=== PATIENT | male | born 1990 ===

== ENCOUNTER 2022-12-16 09:47 | Emergency (ER) | payer SELFPAY ==
--- NOTE | ~2022-12-16 | XR_ITS ---
EXAMINATION: XR knee RT 3V DATE: 12/16/2022 10:29 INDICATION: Right knee injury and pain and swelling. TECHNIQUE: 3 views of right knee on 4 radiographs were obtained. COMPARISON: Right knee radiographs 12/11/2004 FINDINGS: Bone alignment is normal. No fracture. Joint spaces are well maintained. There is no knee j oint effusion. IMPRESSION: 1. Normal right knee. Reviewed, dictated and finalized at location A. IMPRESSION: 1. Normal right knee.
[2022-12-16 09:50] VITALS: BP 142/82; PULSE 62; RESP 18; TEMP 36.1; O2SAT 97
--- NOTE | 2022-12-16 09:59 | ED.GENADULT ---
HPI - General Adult General Chief complaint: Extremity Injury, Lower Stated complaint: right knee injury Time Seen by Provider: 12/16/22 09:50 History of Present Illness HPI narrative: Jasmeet is a 32M with a PMH of GERD that presented to the ED with pain in his right knee. It started when he was getting into a boat yesterday. He had immediate pain and swelling. He currently has pain on the medial and posterior side of his right knee. No other injuries noted. Related Data Home Medications Medication Instructions Recorded Confirmed omeprazole magnesium 20 mg 20 mg PO DAILY 05/29/22 12/16/22 capsule,delayed release (Acid Resident Buyer (omeprazole)) Allergies Allergy/AdvReac Type Severity Reaction Status Date / Time No Known Allergies Allergy Verified 12/16/22 09:57 Review of Systems Review of Systems: All systems reviewed & are unremarkable except as noted in HPI and below PMFSH Social History Social History Smoking status: Current every day smoker Exam Const: General: healthy appearing and no acute distress Nutritional Appearance: well nourished Orientation/consciousness: patient oriented x3 HENMT: Head: normal to inspection Ears: external ears normal Face/Nose/Sinus: Normal external nose present Eyes: Conjunctivae: conjunctivae normal Pupils: Equal, round and reactive pupils present Neck: Neck: normal visual inspection and no lymphadenopathy Chest: Chest palpation & inspection: normal inspection of the chest Resp: Effort & Inspection: normal respiratory effort Cardio: Rate: regular rate Back/Spine/Pelvis: Other: n Skin: General skin exam: normal color Rashes: no rashes Neuro: General: patient oriented x3 and moves all extremities Speech: normal speech Extrem: Other: Right knee had a moderate effusion, +TTP on the left medial knee. +anterior drawer and pain on the medial side with valgus stress Psych: Mental Status: mental status grossly normal Course Course Emergency Course: He declined meds for pain. Ordered radiographs but exam consistent with ligamentous or meniscus injury EXAMINATION: XR knee RT 3V DATE: 12/16/2022 10:29 INDICATION: Right knee injury and pain and swelling. TECHNIQUE: 3 views of right knee on 4 radiographs were obtained. COMPARISON: Right knee radiographs 12/11/2004 FINDINGS: Bone alignment is normal. No fracture. Joint spaces are well maintained. There is no knee joint effusion. IMPRESSION: 1. Normal right knee. Vital Signs Vital signs: Vital Signs Temperature 96.9 F L 12/16/22 09:50 Pulse Rate 62 12/16/22 09:50 Respiratory Rate 18 12/16/22 09:50 Blood Pressure 142/82 H 12/16/22 09:50 Pulse Oximetry 97 12/16/22 09:50 Oxygen Delivery Room Air 12/16/22 09:50 Temperature 96.9 F L 12/16/22 09:50 Pulse Rate 62 12/16/22 09:50 Respiratory Rate 18 12/16/22 09:50 Blood Pressure 142/82 H 12/16/22 09:50 Pulse Oximetry 97 12/16/22 09:50 Oxygen Delivery Room Air 12/16/22 09:50 Medical Decision Making Vital Signs Vital Signs: Vital Signs Temperature 96.9 F L 12/16/22 09:50 Pulse Rate 62 12/16/22 09:50 Respiratory Rate 18 12/16/22 09:50 Blood Pressure 142/82 H 12/16/22 09:50 Pulse Oximetry 97 12/16/22 09:50 Oxygen Delivery Room Air 12/16/22 09:50 Temperature 96.9 F L 12/16/22 09:50 Pulse Rate 62 12/16/22 09:50 Respiratory Rate 18 12/16/22 09:50 Blood Pressure 142/82 H 12/16/22 09:50 Pulse Oximetry 97 12/16/22 09:50 Oxygen Delivery Room Air 12/16/22 09:50 Discharge Plan Discharge Clinical Impression: Acute pain of right knee Patient Disposition: Home, Self-Care Condition: Stable Additional Instructions: Please make an appt with your regular doctor for further workup and management Prescriptions: No Action omeprazole magnesium [Acid Resident Buyer (omeprazole)] 20 mg capsule,del
[2022-12-16 10:55] VITALS: BP 129/77; PULSE 63; RESP 14; TEMP 36.5; O2SAT 98
== END 2022-12-16 11:00 | disposition home or self-care (01) ==
PROVIDERS: Emergency Provider Family Medicine
DX: M25.561 Pain in right knee (principal); F17.200 Nicotine dependence, unspecified, uncomplicated
CPT/HCPCS: 73562; 99283

== ENCOUNTER 2022-12-27 09:36 | Outpatient (CLI) | payer SELFPAY ==
--- NOTE | ~2022-12-27 | MR_ITS ---
MRI of the right knee Clinical history: Pain Technique: Coronal proton density and proton density-weighted images, sagittal proton-density and T2 fat-sat images, and axial proton-density fat-saturated images were acquired. Findings: Suspected complete tear at the proximal ACL noted. Posterior cruciate ligament is intact. M edial collateral ligament and the lateral collateral ligament, as are intact. Popliteus tendon is int act. Medial and lateral menisci are intact, without evidence of tear. Articular cartilage is relatively well preserved throughout the knee. Bone marrow signals are unremar kable. Extensor mechanism is intact. Small to moderate joint effusion present. No Jasso's cyst. Impression: Probable complete rupture of the proximal ACL. Small to moderate joint effusion. Reviewed, dictated and finalized at location . Impression: Probable complete rupture of the proximal ACL. Small to moderate joint effusion.
== END 2022-12-27 09:37 | disposition home or self-care (01) ==
LOC: CHSIMG 09:38
PROVIDERS: PCP Family Medicine; Visit Provider Nurse Practitioner Family
DX: M25.561 Pain in right knee (principal); M25.461 Effusion, right knee
CPT/HCPCS: 73721

== ENCOUNTER 2023-02-26 09:45 | Outpatient (RCR) | payer OTHER, SELFPAY ==
--- NOTE | 2023-02-26 10:45 | OPREHPOC ---
Outpatient Therapy Plan of Care This is a Multidisciplinary Plan of Care that may contain components documented by all disciplines (PT, OT, and ST.) PT Problem 1 PT Problem #1 Knowledge Deficit PT Goal 1 Goal Independent with HEP Target Visit 8 PT Problem 2 PT Problem #2 Impaired Flexibility PT Goal 1 Goal 0-125 degrees passive range of motion Target Visit 8 PT Goal 2 Goal active knee extension to 40 degrees Target Visit 8 PT Problem 3 PT Problem #3 Impaired Strength PT Goal 1 Goal active straight leg raise in brace x 10 reps without pain or assistance Target Visit 8
--- NOTE | 2023-02-26 10:45 | PTOPEVAL1 ---
Assessment and note entered by Mike Cohen, PT Evaluation Information Assessment Status Evaluation Diagnosis R ACL repair Onset 02/18/23 Subjective Information The patient reports having his surgery on 02/18/23 unable to do icing because he does not feel it under the markus wrap. (Encouraged patient to continue icing when able) Patient went to a concert and slipped putting weight on his R LE. Patient was having trouble with exercises went over them again with him through the scope of his protocol. Also showed patient clips on the brace so he is not undoing and redoing the velcro each time. Reports going back to the MD on 02/28/23 to get ride of markus wrap. Reported Pain Level Pain Score 7: Self Report Additional Pain Score Comments offered ice, but patient declines, patient reports he will ice more after the markus wrap comes off. Assessment PT Clinical Summary Jasmeet is a 32 year old male coming into the hospital 8 days post an ACL repair. Patient has 0 -10-52 degrees passive range of motion with good quad contraction. Patient needs to work on increasing strength and range of motion following the recovery protocol. Recommend continued physical therapy to help patient get back to functional level. Plan of Care Interventions Electrical Stimulation,Gait Training,Hot Pack/Cold Pack,Manual Therapy,Neuro Re-education,Patient/ Caregiver Education,Therapeutic Activities, Therapeutic Exercise,Ultrasound Other Interventions taping, cupping, IASTM PT Services Indicated Yes Treatment Frequency and 2x/wk for 4 weeks Duration These treatments will address the objective and functional deficits as defined above. The patient will be advanced safely and appropriately in order for the patient to progress towards his/her prior level of function. Additional exercises will be introduced and as well as a comprehensive home exercise program upon discharge, if needed, ?to ensure carryover of functional gains achieved in the clinic. This treatment plan has been reviewed and agreement upon by the patient.
--- NOTE | 2023-03-04 16:05 | PCPTNOTE ---
Pt. did not show for appointment 03/04/23 and after calling the patient, he noted that he thought his appointment was tomorrow but then stated he had no ride and would not be able to come the rest of the week anyway.
--- NOTE | 2023-03-11 13:04 | PCPTNOTE ---
Patient did not show up for scheduled appointment this date, left voicemail with next appointment time. Also called surgeon's office to let them know he has missed 3 straight appointments since his initial evaluation.
--- NOTE | 2023-03-26 09:23 | PCPTNOTE ---
Admitting Provider: Attending Provider: DEISI SOTELO Patient:Jasmeet Quintero Date of :1990 Patient has not returned for any further treatments since 03/11/2023, therefore he will be discharged at this time. Patient?s initial visit was on 02/26/2023 10:00 and he had a total of ___1 visits with 2 cancelations and 1 no show. Patient called after each visit and either confirmed next visit or left voicemail to call back to reschedule. Physical therapist also called surgeon about non-compliance. The goals have been not met. Thank you for referring this patient to [facility]. Please review, sign, date and return this discharge summary JASKARAN. I have been updated about the patient's current status and I agree with discharge from the above service at this time. Referring Physician Date
== END 2023-03-26 12:11 | disposition home or self-care (01) ==
LOC: ANHPT 09:45
PROVIDERS: PCP Family Medicine
DX: S83.511D Sprain of anterior cruciate ligament of right knee, subsequent encounter (principal)
CPT/HCPCS: 97110; 97161; 99199